=== PATIENT | male | born 1945 | race Caucasian/White ===

== ENCOUNTER 2016-07-11 16:40 | Inpatient (IN) | payer OTHER ==
[~2016-07-11] VITALS: Ht 182.9 cm; Wt 110.0 kg
[~2016-07-11 16:40] MED LIST: ASCORBIC ACID500 M3 PO; ASPIR-LOW81 MG PO; ASPIRIN E.C.81 M1 PO; Ativan PO; BACTRIM,SEPT1 TABLET PO; CALCIUM500 M4 PO; CEFTIN500 MG PO; CELEXA40 MG PO; CITALOPRAM HBR40 MG PO; COLACE100 MG PO; COMBIGAN O20 DROP/5 LEFT EYE; CYANOCOBALAM1000 MCG PO; DUREZOL 0.100 DROP/5 LEFT EYE; EYE DROPS; GLIPIZIDE ER2.5 M1 PO; GLIPIZIDE ER2.5 MG PO; HYDROCHLOROTHIA25 MG PO; K-DUR20 MEQ PO; LASIX40 MG PO; LEVEMIR100 UNIT/2 SC; LUMIGAN 0.50 DROP/22 RIGHT EYE; NOVOLOG PE100 UNITS/ SC; PRAVASTATIN SOD20 MG PO; RISPERDAL1 MG PO; RISPERDAL2 MG PO; RISPERDAL4 MG PO; RISPERIDONE3 MG PO; RISPERIDONE4 MG PO; SIMVASTATIN20 MG PO; Tricor,Triglide PO; VITAMIN C; XARELTO15 MG PO; ZOCOR20 MG PO; Zocor PO; celeXA PO; risperDAL PO
[2016-07-11 18:23] LABS: EOSINOPHIL (%) 2.8 % (0-5); EOSINOPHIL COUNT 0.4 K/uL (0-0.3); HEMATOCRIT 43.8 % (38.0-50.0); IMMATURE GRANULOCYTE (%) 0.1 % (0.0-0.7); IMMATURE GRANULOCYTE COUNT 0.1 K/uL; LYMPHOCYTE COUNT 1.1 K/uL (1.0-2.8); MCH 28.5 PG (29.0-34.0); MCV 89.2 FL (86-99); MONOCYTE COUNT 0.8 K/uL (0-0.8); NEUTROPHIL (%) 82.9 % (45-76); NEUTROPHIL COUNT 10.9 K/uL (1.8-6.4); PLATELET COUNT 146 K/uL (156-360); RBC DIS.WIDTH-CV 15.3 % (11.8-14.6); RBC DIS.WIDTH-SD 49.5 % (39-53); RED BLOOD COUNT 4.91 M/uL (4.00-5.50); WHITE BLOOD COUNT 13.1 K/uL (4.1-10.2)
[2016-07-11 18:59] LABS: ANION GAP 11 MEQ/L (2-14); CHLORIDE 102 MEQ/L (99-109); POTASSIUM 4.1 MEQ/L (3.7-5.4); SAMPLE HEMOLYSIS CHECK 0; SAMPLE ICTERIC CHECK 0; SAMPLE LIPEMIA CHECK 0; SODIUM 140 MEQ/L (136-147); TOTAL BILIRUBIN 0.7 MG/DL (0.0-1.0)
[2016-07-11 19:05] LABS: ALKALINE PHOSPHATASE 80 IU/L (3-129); GFR ESTIMATE (CALCULATED) 49 mL/min/; GLUCOSE 164 mg/dL (70-99); UREA NITROGEN (BUN) 34 mg/dL (9-23)
[2016-07-11 19:07] LABS: TROP-I INTERPRETATION NEGATIVE; TROPONIN-I 0.02 ng/mL (0.0-0.30)
[2016-07-11 20:18] LABS: ADD MIUA? YES; BILIRUBIN NEGATIVE; BLOOD NEGATIVE; COLOR YELLOW ((YELLOW)); GLUCOSE (STRIP) NEGATIVE; KETONES NEGATIVE; LEUKOCYTES NEGATIVE; NITRITE NEGATIVE; PH, URINE 5.5 (5-8); PROTEIN (STRIP) TRACE; SPECIFIC GRAVITY 1.026 (1.000-1.030); UROBILINOGEN 0.2 MG/DL (0.2-1.0)
[2016-07-11 20:55] LABS: EPITHELIAL CELLS NONE SEEN; MUCUS 3+; RED BLOOD CELLS 0-5 /HPF (0-5); WHITE BLOOD CELLS 0-5 /HPF (0-5)
[2016-07-11 20:56] LABS: AMORPHOUS URATES CRYSTALS 1+; BACTERIA 1+; CASTS PRESENT /LPF; CRYSTALS PRESENT; UCUL ADDED? NO
[2016-07-11] MEDS ORDERED: LANTUS 10100 UNITS/ SC (21:07)
[2016-07-11] MEDS ORDERED: CELEXA10 MG PO (21:08)
[2016-07-11] MEDS ORDERED: CYANOCOBALAM1000 MCG PO (21:08)
[2016-07-11] MEDS ORDERED: ASPIRIN81 M2 PO (21:10)
[2016-07-11] MEDS ORDERED: LUMIGAN 0.50 DROP/22 BOTH EYES (21:11)
[2016-07-12 01:29] VITALS: BP 166/77
[2016-07-12 03:01] VITALS: BP 140/70
[2016-07-12 07:16] LABS: POINT-OF-CARE METER ID UU13113725
[2016-07-12 08:36] VITALS: BP 133/68
[2016-07-12 11:18] LABS: POINT-OF-CARE METER ID UU13113717
[2016-07-12 15:50] VITALS: BP 125/58
[2016-07-12 16:20] LABS: POINT-OF-CARE METER ID UU13113717
[2016-07-12 21:00] LABS: POINT-OF-CARE METER ID UU13113725
[2016-07-12 23:23] VITALS: BP 126/61
[2016-07-13 06:15] LABS: POINT-OF-CARE METER ID UU13113725
[2016-07-13 06:19] LABS: EOSINOPHIL (%) 6.3 % (0-5); EOSINOPHIL COUNT 0.5 K/uL (0-0.3); HEMATOCRIT 37.3 % (38.0-50.0); IMMATURE GRANULOCYTE (%) 0.1 % (0.0-0.7); LYMPHOCYTE COUNT 1.2 K/uL (1.0-2.8); MCH 28.4 PG (29.0-34.0); MCHC 32.2 G/DL (30.0-36.0); MCV 88.4 FL (86-99); MONOCYTE (%) 7.2 % (3-12); MONOCYTE COUNT 0.6 K/uL (0-0.8); NEUTROPHIL (%) 70.9 % (45-76); NEUTROPHIL COUNT 5.6 K/uL (1.8-6.4); PLATELET COUNT 121 K/uL (156-360); RBC DIS.WIDTH-CV 14.9 % (11.8-14.6); RBC DIS.WIDTH-SD 47.8 % (39-53); RED BLOOD COUNT 4.22 M/uL (4.00-5.50); WHITE BLOOD COUNT 7.9 K/uL (4.1-10.2)
[2016-07-13 06:51] LABS: ANION GAP 10 MEQ/L (2-14); CHLORIDE 106 MEQ/L (99-109); GFR ESTIMATE (CALCULATED) > 59 mL/min/; GLUCOSE 84 mg/dL (70-99); POTASSIUM 3.5 MEQ/L (3.7-5.4); SAMPLE HEMOLYSIS CHECK 0; SAMPLE ICTERIC CHECK 0; SAMPLE LIPEMIA CHECK 0; SODIUM 140 MEQ/L (136-147); UREA NITROGEN (BUN) 20 mg/dL (9-23)
[2016-07-13 08:02] VITALS: BP 136/63
[2016-07-13 11:34] LABS: POINT-OF-CARE METER ID UU13113725
[2016-07-13 15:54] VITALS: BP 158/69
[2016-07-13 17:07] LABS: POINT-OF-CARE METER ID UU13113725
[2016-07-13 20:57] LABS: POINT-OF-CARE METER ID UU13113725
[2016-07-13 23:29] VITALS: BP 138/69
[2016-07-14 05:53] LABS: POINT-OF-CARE METER ID UU13113725
[2016-07-14 07:06] LABS: HEMATOCRIT 39.3 % (38.0-50.0); MCH 28.5 PG (29.0-34.0); MCHC 32.3 G/DL (30.0-36.0); MCV 88.3 FL (86-99); MEAN PLAT.VOLUME 11.5 uM^3 (9.0-12.4); PLATELET COUNT 153 K/uL (156-360); RBC DIS.WIDTH-CV 14.7 % (11.8-14.6); RBC DIS.WIDTH-SD 47.2 % (39-53); RED BLOOD COUNT 4.45 M/uL (4.00-5.50); WHITE BLOOD COUNT 8.4 K/uL (4.1-10.2)
[2016-07-14 07:51] VITALS: BP 140/56
[2016-07-14] MEDS ORDERED: CEFDINIR300 MG PO (09:46)
[2016-07-14 10:55] LABS: POINT-OF-CARE METER ID UU13113725
[2016-07-14 15:37] LABS: POINT-OF-CARE METER ID UU13113725
[2016-07-14 16:06] VITALS: BP 113/58
[2016-07-14 23:35] VITALS: BP 130/60
[2016-07-15 06:22] LABS: POINT-OF-CARE METER ID UU13113725
[2016-07-15 07:50] VITALS: BP 138/69
[2016-07-15 15:17] VITALS: BP 147/65
[2016-07-15 23:37] VITALS: BP 111/56
[2016-07-16 08:04] VITALS: BP 120/58
[2016-07-16 16:50] VITALS: BP 124/62
[2016-07-16 21:13] LABS: POINT-OF-CARE METER ID UU13113725
[2016-07-16 23:45] VITALS: BP 120/65
[2016-07-17 06:17] LABS: POINT-OF-CARE METER ID UU13113725
[2016-07-17 07:59] VITALS: BP 136/91
[2016-07-17 16:30] VITALS: BP 103/64
[2016-07-17 23:11] VITALS: BP 102/44
[2016-07-18 06:17] LABS: POINT-OF-CARE METER ID UU13113725
[2016-07-18 07:36] VITALS: BP 122/60
[2016-07-18 11:56] LABS: POINT-OF-CARE METER ID UU13113725
[2016-07-18 16:20] VITALS: BP 139/68
[2016-07-18 23:14] VITALS: BP 121/65
[2016-07-19 06:44] LABS: HEMATOCRIT 37.5 % (38.0-50.0); MCH 28.8 PG (29.0-34.0); MCHC 32.8 G/DL (30.0-36.0); MCV 87.8 FL (86-99); RBC DIS.WIDTH-CV 14.6 % (11.8-14.6); RBC DIS.WIDTH-SD 46.6 % (39-53); RED BLOOD COUNT 4.27 M/uL (4.00-5.50); WHITE BLOOD COUNT 10.2 K/uL (4.1-10.2)
[2016-07-19 07:17] LABS: MEAN PLAT.VOLUME 10.7 uM^3 (9.0-12.4)
[2016-07-19 07:18] LABS: PLATELET COUNT 206 K/uL (156-360)
[2016-07-19 07:20] LABS: ANION GAP 10 MEQ/L (2-14); CHLORIDE 103 MEQ/L (99-109); GFR ESTIMATE (CALCULATED) > 59 mL/min/; GLUCOSE 94 mg/dL (70-99); MAGNESIUM 1.8 mg/dl (1.3-2.7); POTASSIUM 3.8 MEQ/L (3.7-5.4); SAMPLE HEMOLYSIS CHECK 0; SAMPLE ICTERIC CHECK 0; SAMPLE LIPEMIA CHECK 0; SODIUM 140 MEQ/L (136-147); UREA NITROGEN (BUN) 15 mg/dL (9-23)
[2016-07-19 09:19] VITALS: BP 107/54
[2016-07-19 17:41] VITALS: BP 123/59; BP 145/77
[2016-07-19 23:01] VITALS: BP 112/60
[2016-07-20 01:00] VITALS: BP 138/71
[2016-07-20 06:44] LABS: POINT-OF-CARE METER ID UU13113725
[2016-07-20 07:14] LABS: HEMATOCRIT 40.4 % (38.0-50.0); MCH 27.7 PG (29.0-34.0); MCHC 31.4 G/DL (30.0-36.0); MEAN PLAT.VOLUME 10.4 uM^3 (9.0-12.4); PLATELET COUNT 203 K/uL (156-360); RBC DIS.WIDTH-CV 14.6 % (11.8-14.6); RBC DIS.WIDTH-SD 46.5 % (39-53); RED BLOOD COUNT 4.59 M/uL (4.00-5.50); WHITE BLOOD COUNT 8.8 K/uL (4.1-10.2)
[2016-07-20 07:42] LABS: ANION GAP 10 MEQ/L (2-14); CHLORIDE 103 MEQ/L (99-109); GFR ESTIMATE (CALCULATED) > 59 mL/min/; GLUCOSE 94 mg/dL (70-99); POTASSIUM 3.9 MEQ/L (3.7-5.4); SAMPLE HEMOLYSIS CHECK 0; SAMPLE ICTERIC CHECK 0; SAMPLE LIPEMIA CHECK 0; SODIUM 140 MEQ/L (136-147); UREA NITROGEN (BUN) 14 mg/dL (9-23)
[2016-07-20 07:45] VITALS: BP 134/65
== END 2016-07-20 11:18 | DRG 689 ==
LOC: EME 16:40 → 5EAST 23:52 → EDOF 23:52 → 5EAST 07-12 01:23
PROVIDERS: Emergency Medicine; Hospitalist; Internal Medicine
DX: N39.0 Urinary tract infection, site not specified (principal); G93.41 Metabolic encephalopathy; N17.9 Acute kidney failure, unspecified; E87.6 Hypokalemia; F31.9 Bipolar disorder, unspecified; F03.90 Unspecified dementia, unspecified severity, without behavioral disturbance, psychotic disturbance, mood disturbance, and anxiety; E11.9 Type 2 diabetes mellitus without complications; I10 Essential (primary) hypertension; E78.5 Hyperlipidemia, unspecified; E66.9 Obesity, unspecified; Z68.32 Body mass index [BMI] 32.0-32.9, adult; Z75.1 Person awaiting admission to adequate facility elsewhere; Z86.718 Personal history of other venous thrombosis and embolism; Z79.82 Long term (current) use of aspirin
CPT/HCPCS: 70450; 70551; 71020; 80048; 80053; 81003; 82948; 83735; 84484; 85025; 85027; 87493; 93005; 97530 GO; 97530 GP; 99281; 99285; J0696; J1644; J1815; J7030; J7050

== ENCOUNTER 2017-07-21 10:25 | Emergency (ER) | payer OTHER ==
[~2017-07-21] VITALS: Ht 182.9 cm; Wt 113.6 kg
[~2017-07-21 10:25] MED LIST changes: +ASPIRIN81 M2 PO; +CEFDINIR300 MG PO; +CELEXA10 MG PO; +LANTUS 10100 UNITS/ SC; +LUMIGAN 0.50 DROP/22 BOTH EYES
[2017-07-21 12:45] LABS: HEMATOCRIT 40.2 % (38.0-50.0); HEMOGLOBIN 13.2 G/DL (12.5-16.6); MCH 28.8 PG (29.0-34.0); MCHC 32.8 G/DL (30.0-36.0); MCV 87.8 FL (86-99); PLATELET COUNT 178 K/uL (156-360); RBC DIS.WIDTH-CV 14.5 % (11.8-14.6); RBC DIS.WIDTH-SD 46.3 % (39-53); RED BLOOD COUNT 4.58 M/uL (4.00-5.50); WHITE BLOOD COUNT 11.4 K/uL (4.1-10.2)
[2017-07-21 12:54] LABS: CHLORIDE 102 mEq/L (99-109)
[2017-07-21 12:55] LABS: POTASSIUM 4.1 mEq/L (3.7-5.4); SODIUM 138 mEq/L (136-147)
[2017-07-21 12:56] LABS: GLUCOSE 145 mg/dL (70-99)
[2017-07-21 13:00] LABS: CREATININE 1.1 mg/dL (0.6-1.3); GFR ESTIMATE (CALCULATED) > 59 mL/min/ (58.99-99999)
[2017-07-21 13:01] LABS: UREA NITROGEN (BUN) 21 mg/dL (9-23)
[2017-07-21 13:06] LABS: APPEARANCE SL.HAZY ((CLEAR)); BILIRUBIN NEGATIVE; BLOOD NEGATIVE; COLOR YELLOW ((YELLOW)); GLUCOSE (STRIP) NEGATIVE; KETONES NEGATIVE; LEUKOCYTES LARGE; NITRITE NEGATIVE; PROTEIN (STRIP) NEGATIVE; SPECIFIC GRAVITY 1.012 (1.000-1.030); UROBILINOGEN 0.2 MG/DL (0.2-1.0)
[2017-07-21 13:22] LABS: BACTERIA RARE /HPF; EPITHELIAL CELLS RARE /HPF; HYALINE CASTS 0-5 /LPF; MUCUS NONE SEEN /LPF; UCUL ADDED? YES; WHITE BLOOD CELLS TNTC /HPF (0-5)
[2017-07-21] MEDS ORDERED: TYLENOL WITH C1 EACH PO (15:31)
[2017-07-21] MEDS ORDERED: KEFLEX500 MG PO (15:31)
[2017-07-21 16:00] VITALS: BP 141/78
== END 2017-07-21 16:57 | disposition home or self-care (01) ==
LOC: EME 10:25
PROVIDERS: Emergency Medicine
DX: S80.02XA Contusion of left knee, initial encounter (principal); N39.0 Urinary tract infection, site not specified; W18.30XA Fall on same level, unspecified, initial encounter; Y92.009 Unspecified place in unspecified non-institutional (private) residence as the place of occurrence of the external cause; I10 Essential (primary) hypertension; E78.5 Hyperlipidemia, unspecified; E11.9 Type 2 diabetes mellitus without complications; F41.9 Anxiety disorder, unspecified; F32.9 Major depressive disorder, single episode, unspecified; Z79.4 Long term (current) use of insulin; Z79.01 Long term (current) use of anticoagulants; Z79.82 Long term (current) use of aspirin
CPT/HCPCS: 73564; 80048; 81003; 85027; 87086; 99281; 99285; G8978 GP CM; G8979 CJ; G8980 GP CM; G8987 GO CM; G8988 GO CJ; G8989 GO CM

== ENCOUNTER 2017-12-15 10:34 | Inpatient (IN) | payer OTHER ==
[~2017-12-15] VITALS: Ht 182.9 cm; Wt 110.5 kg
[~2017-12-15 10:34] MED LIST changes: +KEFLEX500 MG PO; +TYLENOL WITH C1 EACH PO
[2017-12-15 11:16] LABS: HEMATOCRIT 40.2 % (38.0-50.0); HEMOGLOBIN 13.2 G/DL (12.5-16.6); MCHC 32.8 G/DL (30.0-36.0); MCV 88.4 FL (86-99); PLATELET COUNT 156 K/uL (156-360); RBC DIS.WIDTH-CV 14.7 % (11.8-14.6); RBC DIS.WIDTH-SD 47.7 % (39-53); RED BLOOD COUNT 4.55 M/uL (4.00-5.50)
[2017-12-15 11:26] LABS: CHLORIDE 105 mEq/L (99-109); SODIUM 143 mEq/L (136-147)
[2017-12-15 11:27] LABS: MAGNESIUM 2.1 mg/dL (1.3-2.7)
[2017-12-15 11:29] LABS: GLUCOSE 117 mg/dL (70-99)
[2017-12-15 11:31] LABS: TOTAL BILIRUBIN 0.5 mg/dL (0.0-1.0)
[2017-12-15 11:32] LABS: ALKALINE PHOSPHATASE 76 IU/L (3-129)
[2017-12-15 11:33] LABS: CREATININE 1.2 mg/dL (0.6-1.3); GFR ESTIMATE (CALCULATED) > 59 mL/min/ (58.99-99999)
[2017-12-15 11:34] LABS: AST (GOT) 15 IU/L (2-34); UREA NITROGEN (BUN) 30 mg/dL (9-23)
[2017-12-15 11:36] LABS: ALT (GPT) 14 IU/L (3-49); CREATINE KINASE 59 IU/L (1-294); LIPASE 53 U/L (1.0-51.0); TOTAL CK 59 IU/L (1-294)
[2017-12-15 11:42] LABS: CK-MB 1.7 ng/mL (0.0-4.9); CKMB RELATIVE INDEX 2.9 (0.0-3.9)
[2017-12-15 11:44] LABS: APPEARANCE SL.HAZY ((CLEAR)); BILIRUBIN NEGATIVE; BLOOD NEGATIVE; COLOR YELLOW ((YELLOW)); GLUCOSE (STRIP) NEGATIVE; KETONES NEGATIVE; LEUKOCYTES LARGE; NITRITE NEGATIVE; PROTEIN (STRIP) NEGATIVE; SPECIFIC GRAVITY 1.016 (1.000-1.030); UROBILINOGEN 0.2 MG/DL (0.2-1.0)
[2017-12-15 12:03] LABS: BACTERIA RARE /HPF; EPITHELIAL CELLS RARE /HPF; MUCUS NONE SEEN /LPF; RED BLOOD CELLS RARE /HPF (0-5); UCUL ADDED? YES; WHITE BLOOD CELLS 40-50 /HPF (0-5)
[2017-12-15 13:00] LABS: SERUM ETHYL ALCOHOL < 10 mg/dL
[2017-12-15 13:03] LABS: ACETAMINOPHEN (TYLENOL) < 10 mcg/mL (10-30); SALICYLATE < 5.0 MG/DL (15-30)
[2017-12-15 13:57] LABS: AMPHETAMINE NEGATIVE (500 ng/mL); BARBITURATES NEGATIVE (200 ng/mL); BENZODIAZEPINES NEGATIVE (150 ng/mL); BUPRENORPHINE NEGATIVE (10 ng/mL); COCAINE NEGATIVE (150 ng/mL); METHADONE NEGATIVE (200 ng/mL); METHAMPHETAMINE NEGATIVE (500 ng/mL); OPIATES (MORPHINE) NEGATIVE (100 ng/mL); OXYCODONE NEGATIVE (100 ng/mL); PHENCYCLIDINE NEGATIVE (25 ng/mL); PROPOXYPHENE NEGATIVE (300 ng/mL); THC CANNABINOIDS NEGATIVE (50 ng/mL); TRICYCLIC ANTIDEPRESSANTS NEGATIVE (300 ng/mL)
[2017-12-15 16:33] VITALS: BP 139/63
[2017-12-15] MEDS ORDERED: FLOMAX0.4 MG PO (18:33)
[2017-12-15] MEDS ORDERED: LEVEMIR100 UNIT/2 SC (18:37)
[2017-12-16 07:52] VITALS: BP 103/54
[2017-12-16 16:22] VITALS: BP 108/61
[2017-12-17 08:30] VITALS: BP 141/66
[2017-12-17 15:55] VITALS: BP 99/55
[2017-12-18 08:18] VITALS: BP 115/67
[2017-12-18 16:50] VITALS: BP 111/58
[2017-12-19 07:46] VITALS: BP 135/59
[2017-12-19 16:44] VITALS: BP 116/56
[2017-12-20 07:48] VITALS: BP 118/56
[2017-12-20 16:03] VITALS: BP 141/65
[2017-12-20 17:57] VITALS: BP 139/70
[2017-12-21 07:57] VITALS: BP 121/58
[2017-12-21 16:50] VITALS: BP 112/53
[2017-12-22 08:31] VITALS: BP 118/55
[2017-12-22 16:37] VITALS: BP 119/60
[2017-12-23 07:51] VITALS: BP 111/56
[2017-12-23 16:27] VITALS: BP 124/69
[2017-12-24 07:44] VITALS: BP 124/64
[2017-12-24 15:11] VITALS: BP 127/61
[2017-12-25 07:55] VITALS: BP 119/56
[2017-12-25 15:22] VITALS: BP 108/75
[2017-12-26 09:22] VITALS: BP 101/49
[2017-12-26 12:07] LABS: ALBUMIN 3.7 G/DL (3.2-4.8); ALKALINE PHOSPHATASE 62 IU/L (3-129); ALT (GPT) 14 IU/L (3-49); AST (GOT) 18 IU/L (2-34); CHLORIDE 103 MEQ/L (99-109); GFR ESTIMATE (CALCULATED) > 59 mL/min/ (58.99-99999); GLUCOSE 135 mg/dL (70-99); POTASSIUM 4.4 MEQ/L (3.7-5.4); SODIUM 140 MEQ/L (136-147); TOTAL BILIRUBIN 0.5 MG/DL (0.0-1.0); TOTAL PROTEIN 6.3 G/DL (6.4-8.3); UREA NITROGEN (BUN) 18 mg/dL (9-23)
[2017-12-26 12:37] LABS: APPEARANCE CLEAR ((CLEAR)); BILIRUBIN NEGATIVE; BLOOD NEGATIVE; COLOR STRAW ((YELLOW)); GLUCOSE (STRIP) NEGATIVE; KETONES NEGATIVE; LEUKOCYTES NEGATIVE; NITRITE NEGATIVE; PROTEIN (STRIP) NEGATIVE; SPECIFIC GRAVITY 1.009 (1.000-1.030); UROBILINOGEN 0.2 MG/DL (0.2-1.0)
[2017-12-26 12:41] LABS: BASOPHIL (%) 0.5 % (0-1); EOSINOPHIL (%) 2.3 % (0-5); EOSINOPHIL COUNT 0.2 K/uL (0-0.3); HEMATOCRIT 41.3 % (38.0-50.0); HEMOGLOBIN 13.2 G/DL (12.5-16.6); IMMATURE GRANULOCYTE (%) 0.2 % (0.0-0.7); LYMPHOCYTE (%) 19.5 % (15-42); LYMPHOCYTE COUNT 1.7 K/uL (1.0-2.8); MCV 87.5 FL (86-99); MONOCYTE (%) 5.7 % (3-12); MONOCYTE COUNT 0.5 K/uL (0-0.8); NEUTROPHIL (%) 71.8 % (45-76); NEUTROPHIL COUNT 6.3 K/uL (1.8-6.4); RBC DIS.WIDTH-SD 48.2 % (39-53); RED BLOOD COUNT 4.72 M/uL (4.00-5.50); WHITE BLOOD COUNT 8.8 K/uL (4.1-10.2)
[2017-12-26 12:51] LABS: PLATELET COUNT 211 K/uL (156-360)
[2017-12-26 15:58] VITALS: BP 102/51
[2017-12-27 08:03] VITALS: BP 122/61
[2017-12-27 16:21] VITALS: BP 107/54
[2017-12-28 07:48] VITALS: BP 148/83
[2017-12-28 15:39] VITALS: BP 111/55
[2017-12-29 07:29] VITALS: BP 105/52
[2017-12-29 14:47] VITALS: BP 111/59
[2017-12-30 08:11] VITALS: BP 105/77
[2017-12-31 08:25] VITALS: BP 126/59
[2017-12-31 15:48] VITALS: BP 88/51
[2017-12-31 16:04] VITALS: BP 105/53
[2018-01-01 08:29] VITALS: BP 120/60
[2018-01-01 15:50] VITALS: BP 124/57
[2018-01-02 07:35] VITALS: BP 140/65
[2018-01-02] MEDS ORDERED: RISPERIDONE1 MG PO (11:37)
[2018-01-02] MEDS ORDERED: DONEPEZIL HCL5 MG PO (11:37)
== END 2018-01-02 15:40 | disposition home or self-care (01) | DRG 57 ==
LOC: EME 10:34 → 1WEST 14:52 → EDOF 14:52 → ENRESERV 16:10 → 1WEST 16:12
PROVIDERS: Emergency Medicine; Psychiatry & Neurology Psychiatry
DX: G30.9 Alzheimer's disease, unspecified (principal); F02.80 Dementia in other diseases classified elsewhere, unspecified severity, without behavioral disturbance, psychotic disturbance, mood disturbance, and anxiety; F31.70 Bipolar disorder, currently in remission, most recent episode unspecified; R32 Unspecified urinary incontinence; G24.01 Drug induced subacute dyskinesia; T43.505A Adverse effect of unspecified antipsychotics and neuroleptics, initial encounter; R19.7 Diarrhea, unspecified; I10 Essential (primary) hypertension; E78.5 Hyperlipidemia, unspecified; E11.9 Type 2 diabetes mellitus without complications; F41.9 Anxiety disorder, unspecified; Z86.718 Personal history of other venous thrombosis and embolism; Z79.82 Long term (current) use of aspirin; Z79.4 Long term (current) use of insulin; Z87.891 Personal history of nicotine dependence; Z75.1 Person awaiting admission to adequate facility elsewhere
CPT/HCPCS: 70450; 74176; 80053; 81003; 82140; 82306; 82550; 82553; 82607; 82746; 82948; 83605; 83690; 83735; 84443; 85025; 85027; 87077; 87086; 87186; 90839; 92610 GN; 93005; 94640; 94640 76; 97150 GO; 97166 GO; 99281; 99285; G0480